=== PATIENT | male | born 1990 | race Caucasian/White ===

== ENCOUNTER 2022-09-30 07:46 | Emergency (ER) | payer BC, SELFPAY ==
[2022-09-30 07:47] VITALS: BMI 29.8
--- NOTE | 2022-09-30 07:47 | ECG_ITS ---
APPROVED REPORT Exam: Resting ECG HR:107 bpm ECG Measurements Heart Rate 107 AXES MT 96 P 58 QRSd 94 QRS -42 QT 363 T 67 QTc 425 Conclusion SINUS TACHYCARDIA WITH SHORT MT INTERVAL LEFT AXIS DEVIATION Late R wave progression ABNORMAL ECG UNCONFIRMED REPORT Electronically signed by : Daniel Sylvester MD 09/30/2022 19:27:09
[2022-09-30 08:00] VITALS: BP 125/85; PULSE 102; RESP 18; O2SAT 100
--- NOTE | 2022-09-30 08:03 | HMH.EDGENADL ---
Discharge Plan Disposition Patient Disposition: Home, Self-Care Prescriptions Prescriptions: No Action No Known Home Medications Referrals Follow up/Referrals: Provider,Referral, [Referring] - See instructions Clinical Impressions Clinical Impression: Stimulant-induced disorder, Acute anxiety, Abnormal LFTs Discharge ED Provider: Evangelina Dorsey General Adult HPI General Chief complaint: Anxiety Stated complaint: anxiety Time Seen by Provider: 09/30/22 08:03 History of Present Illness HPI narrative: Patient is a 32-year-old male presenting today with anxiety. States that last night he was attempting to stay up and get some work done and took 2 extra doses of his Adderall and also had many drinks of wine. States that he was not trying to harm himself. Got 4 hours of sleep woke up this morning went to work about [address] work began having severe anxiety and difficulty breathing stay in the he had bilateral hand tingling and hyperventilation. Currently denies any shortness of breath chest pain fevers chills any other symptoms other than some hand tingling and feeling anxious. States the only other time he has felt like this in the past is when he had some weed brownies. Does have a history of anxiety is on escitalopram as well as BuSpar. Is not currently suicidal homicidal or having auditory visual hallucinations. Related Data Home Medications Medication Instructions Recorded Confirmed No Known Home Medications 05/01/20 05/01/20 Allergies Allergy/AdvReac Type Severity Reaction Status Date / Time No Known Allergies Allergy Verified 05/01/20 17:47 [facility] Disclaimer: The information contained in this section may have been updated after the patient was seen, as this information can be updated by other users. Social History Smoking Status: Never smoker alcohol intake: current substance use type: denies use current occupational status: employed Travel in the last 8 weeks: None ROS Obtained: Yes All systems reviewed & no additional complaints except as documented Physical Exam General General appearance: alert and other (Anxious) Respiratory Respiratory exam: Present normal lung sounds bilaterally and respiratory distress Cardiovascular Cardiovascular exam: Present regular rate; Absent tachycardia Neurological Exam Neurological exam: Present alert, oriented X3, CN II-XII intact and normal gait; Absent motor sensory deficit Psychiatric Psychiatric exam: Present normal affect and anxious Medical Decision Making Akil Inquiry Pt receiving controlled substance: No Vital Signs: 09/30/22 08:00 09/30/22 08:20 09/30/22 08:30 Temperature 97.8 F Temperature Source Oral Pulse Rate 102 H 101 H Pulse Rate [Right Radial] 105 H Respiratory Rate 18 15 Blood Pressure 125/85 129/84 Blood Pressure [Right Arm] 122/81 Blood Pressure Mean 94 93 Blood Pressure Mean [Right Arm] 94 Blood Pressure Source [Right Arm] Automatic Cuff Blood Pressure Position [Right Arm] Supine 02 Sat by Pulse Oximetry 100 100 100 Oxygen Delivery Method Room Air Room Air 09/30/22 09:05 09/30/22 09:30 Temperature Temperature Source Pulse Rate 94 H 95 H Pulse Rate [Right Radial] Respiratory Rate Blood Pressure 133/97 H 113/80 Blood Pressure [Right Arm] Blood Pressure Mean 103 91 Blood Pressure Mean [Right Arm] Blood Pressure Source [Right Arm] Blood Pressure Position [Right Arm] 02 Sat by Pulse Oximetry 99 99 Oxygen Delivery Method Room Air Room Air Lab Data Lab results reviewed: Yes I reviewed the patient's lab results. Lab Results 09/30/22 08:00: WBC 6.8, RBC 5.37, Hgb 17.2, Hct 51.6, MCV 96.0 H, MCH 32.0 H, MCHC 33.3, RDW 13.0, Plt Count 397, MPV 7.1 L, Neut % (Auto) 46.4, Lymph % (Auto) 42.1, Beckham % (Auto) 7.2, Eos % (Auto) 3.2, Baso % (Auto) 1.1, Neut # (Auto) 3.2, Lymph # (Auto) 2.9, Beckham # (Auto) 0.5, Eos # (Auto) 0.2, Baso
--- NOTE | 2022-09-30 08:17 | PC.NURSE ---
checked on pt no complaints at this time,call light @ bs
[2022-09-30 08:20] VITALS: BP 122/81; PULSE 105; RESP 15; TEMP 36.6; O2SAT 100; BMI 29.8
[2022-09-30 08:20] LABS: Basophils # 0.1 K/mm3 (0-0.2); Basophils % 1.1 % (0.1-2.0); Eosinophils # 0.2 K/mm3 (0.0-0.4); Eosinophils % 3.2 % (0.1-12.0); Hematocrit 51.6 % (42.0-52.0); Hemoglobin 17.2 g/dL (14.1-18.0); Lymphocytes # 2.9 K/mm3 (0.7-4.5); Lymphocytes % 42.1 % (10-50); Mean Corpuscular HGB Conc 33.3 g/dL (31.8-35.4); Mean Platelet Volume 7.1 fl (7.4-10.4); Monocytes # 0.5 K/mm3 (0.1-1.0); Monocytes % 7.2 % (1.7-9.3); Neutrophils # 3.2 K/mm3 (1.8-7.8); Neutrophils % 46.4 % (37.0-80.0); Platelet Count 397 K/mm3 (142-424); Red Blood Count 5.37 M/mm3 (4.60-6.20); White Blood Count 6.8 K/mm3 (4.8-10.8)
[2022-09-30 08:26] LABS: Blood Urea Nitrogen 13 mg/dl (9-20); Calcium 9.7 mg/dl (8.4-10.2); Carbon Dioxide 15 mmol/L (22.0-30.0); Creatinine Clearance Estimated 139 mL/min (50-200); Estimated Glomerular Filt Rate 97 ml/min (>60); GFR (African American) 118 ML/MIN (>60); Glucose 91 mg/dl (74-100)
[2022-09-30 08:30] VITALS: BP 129/84; PULSE 101; O2SAT 100
[2022-09-30 08:30] LABS: Alanine Aminotransferase 89 U/L (12-78); Alkaline Phosphatase 115 U/L (38-126); Aspartate Amino Transferase 74 U/L (17-59); Bilirubin,Direct 0.3 mg/dl (0.0-0.4); Bilirubin,Indirect 0.6 mg/dL (0.0-0.9); Bilirubin,Total 0.9 mg/dl (0.2-1.3); Bilirubin,Unconjugated 0.7 mg/dL (0.0-1.1)
[2022-09-30 08:31] LABS: Albumin Level 5.1 g/dl (3.5-5.0); Total Protein,Serum 8.3 g/dl (6.3-8.2)
[2022-09-30 08:46] LABS: Anion Gap 27.9 mEq/L (5-15); Chloride 100 mmol/L (98-107); Potassium 3.9 mmoL/L (3.5-5.1); Sodium 139 mmol/L (136-145)
--- NOTE | 2022-09-30 08:59 | PC.NURSE ---
Help pt unhooked so he could go to the restroom
--- NOTE | 2022-09-30 09:00 | PC.NURSE ---
pt back to room,rehooking him up
[2022-09-30 09:05] VITALS: BP 133/97; PULSE 94; O2SAT 99
[2022-09-30 09:30] VITALS: BP 113/80; PULSE 95; O2SAT 99
[2022-09-30 09:42] VITALS: BP 113/80; PULSE 92; RESP 18; TEMP 36.6; O2SAT 99
== END 2022-09-30 09:43 | disposition home or self-care (01) ==
PROVIDERS: Emergency Provider Student in an Organized Health Care Education/Training Program; PCP Family Medicine
DX: F41.9 Anxiety disorder, unspecified (principal); R94.5 Abnormal results of liver function studies; F15.14 Other stimulant abuse with stimulant-induced mood disorder
CPT/HCPCS: 80048; 80076; 85025; 93005; 96360; 99284; 99285